=== PATIENT | male | born 2000 | race Caucasian/White ===

== ENCOUNTER 2020-11-12 14:08 | Emergency (ER) | payer OTHER ==
[~2020-11-12] VITALS: Ht 180.3 cm; Wt 81.6 kg
[2020-11-12 14:12] VITALS: BP 164/88; Ht 180.3 cm; Wt 81.6 kg
== END 2020-11-12 14:38 | disposition home or self-care (01) ==
LOC: ED 14:08
DX: Z02.89 Encounter for other administrative examinations (principal)